=== PATIENT | male | born 1995 | race African-American/Black ===

== ENCOUNTER 2018-08-17 23:10 | Emergency (ER) | payer SELFPAY ==
[~2018-08-17] VITALS: Ht 188 cm; Wt 65.8 kg
[2018-08-17 23:23] VITALS: BP 112/52
[2018-08-18] MEDS ORDERED: KETOROLAC TROMETH 60MG/2ML VIAL IM ONE (02:45)
== END 2018-08-18 04:45 | disposition home or self-care (01) ==
LOC: ER 23:11
DX: S63.011A Subluxation of distal radioulnar joint of right wrist, initial encounter (principal); W03.XXXA Other fall on same level due to collision with another person, initial encounter; Y93.66 Activity, soccer; Y99.8 Other external cause status; Y92.89 Other specified places as the place of occurrence of the external cause
CPT/HCPCS: 25675; 73110; 96372; 99284; J1885; 25535

== ENCOUNTER 2020-05-05 20:08 | Emergency (ER) | payer MEDICAID ==
[~2020-05-05] VITALS: Ht 185.4 cm; Wt 65.8 kg
[2020-05-05 22:10] VITALS: BP 136/84
[2020-05-05] MEDS ORDERED: HYDROcodone-ACET 7.5/325MG TAB PO ONE (22:15)
== END 2020-05-05 22:32 | disposition home or self-care (01) ==
LOC: ER 20:08
DX: S83.92XA Sprain of unspecified site of left knee, initial encounter (principal); W18.39XA Other fall on same level, initial encounter; Y93.01 Activity, walking, marching and hiking; Y92.89 Other specified places as the place of occurrence of the external cause; Y99.8 Other external cause status
CPT/HCPCS: 29505; 73562

== ENCOUNTER 2020-05-16 17:06 | Emergency (ER) | payer MEDICAID ==
[~2020-05-16] VITALS: Ht 185.4 cm; Wt 64.9 kg
[2020-05-16 17:21] VITALS: BP 129/92
== END 2020-05-16 20:44 | disposition home or self-care (01) ==
LOC: ER 17:06
DX: M25.462 Effusion, left knee (principal)
CPT/HCPCS: 29505; 73562